=== PATIENT | male | born 1960 | race Caucasian/White ===

== ENCOUNTER 2018-06-21 11:12 | Emergency (ER) | payer OTHER ==
[~2018-06-21] VITALS: Ht 172.7 cm; Wt 73.5 kg
[~2018-06-21 11:12] MED LIST: ACETAMINOPHEN; IBUPROFEN
[2018-06-21] MEDS ORDERED: LISI5 PO ×2 (12:11)
[2018-06-21] MEDS ORDERED: VENL75ER PO ×2 (12:12)
[2018-06-21] MEDS ORDERED: METO100ER PO ×2 (12:12)
[2018-06-21] MEDS ORDERED: CHOL10002 ×2 (12:12)
[2018-06-21 12:14] LABS: BASOPHILS ABSOLUTE AUTO 0.04 K/mm3 (0.00-0.23); BASOPHILS PERCENT AUTO 1 % (0-2); EOSINOPHILS ABSOLUTE AUTO 0.05 K/mm3 (0.00-0.68); EOSINOPHILS PERCENT AUTO 1 % (0-6); Hematocrit 37.1 % (37.0-53.0); Hemoglobin 12.6 g/dL (13.5-17.5); IMMATURE GRAN ABSOLUTE AUTO 0.03 K/mm3 (0.00-0.10); IMMATURE GRAN PERCENT AUTO 0 % (0-1); LYMPHOCYTES ABSOLUTE AUTO 0.37 K/mm3 (0.84-5.20); LYMPHOCYTES PERCENT AUTO 5 % (21-46); MONOCYTES ABSOLUTE AUTO 0.56 K/mm3 (0.16-1.47); MONOCYTES PERCENT AUTO 8 % (4-13); Mean Corpuscular HGB 35.2 pg (26.0-34.0); Mean Corpuscular Volume 104 fL (80-100); Mean Platelet Volume 11.2 fL (9.1-12.4); NEUTROPHILS ABSOLUTE AUTO 5.87 K/mm3 (1.96-9.15); NEUTROPHILS PERCENT AUTO 85 % (41-73); Platelet Count 128 K/mm3 (150-400); RDW Coefficient Variation 13.1 % (11.7-14.2); RDW Standard Deviation 49.9 fL (35.1-46.3); Red Blood Cell Count 3.58 M/mm3 (4.30-5.90); White Blood Cell Count 6.92 K/mm3 (4.00-11.30)
[2018-06-21 12:29] LABS: Alanine Aminotransfer (ALT/SGP 98 U/L (12-78); Albumin, Blood 4.2 g/dL (3.4-5.0); Albumin/Globulin Ratio 1.2 (0.8-1.8); Alk Phos 81 U/L (50-136); Anion Gap 13 mmol/L (6-16); Aspartate Aminotrans (AST/SGOT 123 U/L (12-37); Bilirubin, Total 1.2 mg/dL (0.1-1.0); Blood Urea Nitrogen 18 mg/dL (8-24); Bun/Creatinine Ratio 15.5 (12.0-20.0); CO2, Blood 26 mmol/L (21-32); Calcium, Blood 9.5 mg/dL (8.5-10.1); Chloride, Blood 96 mmol/L (98-108); Creatinine, Blood 1.16 mg/dL (0.60-1.20); Globulin, Blood 3.4 g/dL (2.2-4.0); Glomerular Filtration Rate >60 (60-); Glucose, Blood 100 mg/dL (70-99); Potassium, Blood 3.7 mmol/L (3.5-5.5); Sodium, Blood 135 mmol/L (136-145); Total Protein, Blood 7.6 g/dL (6.4-8.2); Troponin I <0.015 ng/mL (0.000-0.040)
[2018-06-22] MEDS ORDERED: LEVE500 PO ×2 (12:28)
[2018-06-22] MEDS ORDERED: ACET325 PO ×2 (12:28)
== END 2018-06-21 13:55 | disposition home or self-care (01) ==
LOC: ER 11:12
PROVIDERS: Emergency Medicine
DX: R55 Syncope and collapse (principal); I10 Essential (primary) hypertension; Z88.8 Allergy status to other drugs, medicaments and biological substances; Z79.899 Other long term (current) drug therapy
CPT/HCPCS: 70450; 71046; 80053; 83880; 84484; 85025; 93005; 93010; 99285-25

== ENCOUNTER 2018-06-21 13:58 | Observation (INO) | payer OTHER ==
[~2018-06-21] VITALS: Ht 172.7 cm; Wt 73.0 kg
[~2018-06-21 13:58] MED LIST changes: +CHOL10002; +LISI5 PO; +METO100ER PO; +VENL75ER PO
[2018-06-21 18:27] LABS: U Amphetamine Screen Not Detected; U Barbituate Screen Not Detected; U Benzodiazapine Screen Not Detected; U Buprenorphine Screen Not Detected; U Cannabinoids Screen Not Detected; U Cocaine Screen Not Detected; U Methadone Screen Not Detected; U Methamphetamine Screen Not Detected; U Opiates Screen Not Detected; U Phencyclidine Screen Not Detected
[2018-06-21 18:28] LABS: U Oxycodone Screen Not Detected; U Propoxyphene Screen Not Detected
--- NOTE | 2018-06-21 19:35 | NUR ---
PHOTOS TAKEN AND WOUND DOCUMENTATION COMPLETED FOR PT'S ABRASION W/SWELLING TO THE R.TOP OF HIS HEAD. BANDAID INTACT. SCANT BLOOD NOTED.
--- NOTE | 2018-06-21 23:57 | NUR ---
THIAMINE INFUSION AND NS BOLUS BOTH HAVE BEEN COMPLETED THIS SHIFT AND PT WAS JUST SL. HE IS NPO AT THIS TIME SO WILL INQUIRE IF MD WANTS CONTINUOUS IVF.
[2018-06-22 04:33] LABS: BASOPHILS ABSOLUTE AUTO 0.04 K/mm3 (0.00-0.23); BASOPHILS PERCENT AUTO 1 % (0-2); EOSINOPHILS ABSOLUTE AUTO 0.18 K/mm3 (0.00-0.68); EOSINOPHILS PERCENT AUTO 3 % (0-6); Hematocrit 34.2 % (37.0-53.0); Hemoglobin 11.6 g/dL (13.5-17.5); IMMATURE GRAN ABSOLUTE AUTO 0.02 K/mm3 (0.00-0.10); IMMATURE GRAN PERCENT AUTO 0 % (0-1); LYMPHOCYTES ABSOLUTE AUTO 0.77 K/mm3 (0.84-5.20); LYMPHOCYTES PERCENT AUTO 13 % (21-46); MONOCYTES ABSOLUTE AUTO 0.69 K/mm3 (0.16-1.47); MONOCYTES PERCENT AUTO 11 % (4-13); Mean Corpuscular HGB 35.5 pg (26.0-34.0); Mean Corpuscular HGB Conc 33.9 g/dL (31.5-36.5); Mean Corpuscular Volume 105 fL (80-100); NEUTROPHILS ABSOLUTE AUTO 4.33 K/mm3 (1.96-9.15); NEUTROPHILS PERCENT AUTO 72 % (41-73); Platelet Count 113 K/mm3 (150-400); RDW Coefficient Variation 12.9 % (11.7-14.2); RDW Standard Deviation 49.7 fL (35.1-46.3); Red Blood Cell Count 3.27 M/mm3 (4.30-5.90); White Blood Cell Count 6.03 K/mm3 (4.00-11.30)
[2018-06-22 04:49] LABS: Anion Gap 9 mmol/L (6-16); Blood Urea Nitrogen 14 mg/dL (8-24); Bun/Creatinine Ratio 13.3 (12.0-20.0); CO2, Blood 25 mmol/L (21-32); Calcium, Blood 8.5 mg/dL (8.5-10.1); Chloride, Blood 102 mmol/L (98-108); Creatinine, Blood 1.05 mg/dL (0.60-1.20); Glomerular Filtration Rate >60 (60-); Glucose, Blood 82 mg/dL (70-99); Magnesium, Blood 2.5 mg/dL (1.6-2.4); Potassium, Blood 3.3 mmol/L (3.5-5.5); Sodium, Blood 136 mmol/L (136-145)
--- NOTE | 2018-06-22 05:20 | NUR ---
SUMMARY: A/OX3 AND COOPERATIVE W/CARE. BED ALARM ON FOR OCCASIONAL IMPULSIVITY AND PT DID SET IT OFF ONCE TO USE URINAL STANDING AT EOB. HE IS MILDLY FORGETFULL BUT HAS USED CALL LIGHT APPROPRIATELY THIS SHIFT. NO SEIZURE ACTIVITY OBSERVED AND PT HAS DENIED SYNCOPE AND ALL OTHER S/S DISTRESS. CIWAS ARE STABLE AT 1. NS BOLUS COMPLETED UPON NOCTE SHIFT CHANGE AND THIAMINE INFUSION WAS RECIEVED. PT WAS SL AND INSTRUCTED TO ADVANCE DIET TOLERATED. ASP PREC'S WERE MAINTAINED AND PT WAS GIVEN WATER AND YOGURT W/O S/S ASP OR DIFFICULTY. SOFT DIET WAS ORDERED BUT WILL ENSURE DAY STAFF ARE AWARE TO MONITOR THIS CLOSELY. PHOTO DOCUMENTATION COMPLETED OF PT'S ABRASION W/SWELLING (GOOSE EGG) TO TOP R.SIDE OF HEAD, BANDAID REMAINS C/D/I. NO ACUTE CHANGES, VSS/AFEBRILE. WILL MONITOR AND REPORT TO DAY RN.
[2018-06-22] MEDS ORDERED: ACET325 PO ×2 (12:28)
[2018-06-22] MEDS ORDERED: LEVE500 PO ×2 (12:28)
--- NOTE | 2018-06-22 13:19 | NUR ---
THIS RN GAVE REPORT TO JACKIE LAGUNAS AT 0950 TO ASSUME CARE OF PATIENTS. PATIENT RECIEVING AN EEG DURING THIS TIME. MEDICATIONS TO BE ADMINISTERED FOLLOWING EEG. THIS RN REASSUMED CARE OF PATIENTS AT 1300. PATIENT TO DISCHARGE. IV'S PULLED. DISCHARGE INFORMATION GIVEN. AT THIS TIME THIS RN WENT TO CHECK PATIENTS MEDICATION LOCK DRAWER. NOTED MORNING MEDICATIONS TO BE IN DRAWER. PATIENT HAD ALREADY DISCHARGED. NOTIFIED CLINICAL COORDINATOR DAMON HARRIS. SHE STATED TO CALL PATIENT TO INFORM PATIENT TO TAKE FIRST DOSE OF KEPPRA TONIGHT. PATIENT DID NOT ANSWER, LEFT VOICEMAIL STATING THAT PATIENT IS TO TAKE FIRST DOSE OF MEDICATION TONIGHT. AND IF HE HAD ANY QUESTIONS TO CALL THE MEDICAL FLOOR. CIWA NEGATIVE FOR WITHDRAWALS.
== END 2018-06-22 13:05 | disposition home or self-care (01) ==
LOC: ER 13:58 → MEDS 14:23 → ENPENDDIS 06-22 11:00 → MEDS 06-22 13:05
PROVIDERS: ADMIT Internal Medicine
DX: R56.9 Unspecified convulsions (principal); I10 Essential (primary) hypertension; F41.9 Anxiety disorder, unspecified; F10.10 Alcohol abuse, uncomplicated; E11.9 Type 2 diabetes mellitus without complications; Z98.890 Other specified postprocedural states; Z79.899 Other long term (current) drug therapy; Z79.01 Long term (current) use of anticoagulants; Z23 Encounter for immunization
CPT/HCPCS: 36415; 70553; 80048; 83605; 83735; 84146; 85025; 90686; 95819; 96374; 96376; 99285-25; A9577; G0008; G0378; G0480; J1953; J3411; J3475; J7040; J7042

== ENCOUNTER → 2019-01-03 | Outpatient (CLI) | payer OTHER ==
[~2019-01-03] MED LIST changes: +ACET325 PO; +LEVE500 PO
== END | disposition home or self-care (01) ==
LOC: LAB SHORT 11:37 → LAB EV 11:37
DX: L03.113 Cellulitis of right upper limb (principal)
CPT/HCPCS: 87070; 87077; 87147; 87186; 87205

== ENCOUNTER 2019-01-18 13:17 | Emergency (ER) | payer OTHER ==
[~2019-01-18] VITALS: Ht 175.3 cm; Wt 72.6 kg
[2019-01-18 13:44] LABS: BASOPHILS ABSOLUTE AUTO 0.01 K/mm3 (0.00-0.23); BASOPHILS PERCENT AUTO 0 % (0-2); EOSINOPHILS ABSOLUTE AUTO 0.01 K/mm3 (0.00-0.68); EOSINOPHILS PERCENT AUTO 0 % (0-6); Hematocrit 35.7 % (37.0-53.0); Hemoglobin 12.3 g/dL (13.5-17.5); IMMATURE GRAN ABSOLUTE AUTO 0.04 K/mm3 (0.00-0.10); IMMATURE GRAN PERCENT AUTO 1 % (0-1); LYMPHOCYTES ABSOLUTE AUTO 0.19 K/mm3 (0.84-5.20); LYMPHOCYTES PERCENT AUTO 4 % (21-46); MONOCYTES ABSOLUTE AUTO 0.72 K/mm3 (0.16-1.47); MONOCYTES PERCENT AUTO 14 % (4-13); Mean Corpuscular HGB 34.6 pg (26.0-34.0); Mean Corpuscular HGB Conc 34.5 g/dL (31.5-36.5); Mean Corpuscular Volume 100 fL (80-100); Mean Platelet Volume 10.3 fL (9.1-12.4); NEUTROPHILS ABSOLUTE AUTO 4.22 K/mm3 (1.96-9.15); NEUTROPHILS PERCENT AUTO 81 % (41-73); Platelet Count 148 K/mm3 (150-400); RDW Coefficient Variation 14.3 % (11.7-14.2); RDW Standard Deviation 52.9 fL (35.1-46.3); Red Blood Cell Count 3.56 M/mm3 (4.30-5.90); White Blood Cell Count 5.19 K/mm3 (4.00-11.30)
[2019-01-18 14:03] LABS: Alanine Aminotransfer (ALT/SGP 72 U/L (12-78); Albumin, Blood 3.6 g/dL (3.4-5.0); Alk Phos 113 U/L (50-136); Anion Gap 13 mmol/L (6-16); Aspartate Aminotrans (AST/SGOT 98 U/L (12-37); Bilirubin, Total 0.7 mg/dL (0.1-1.0); Blood Urea Nitrogen 9 mg/dL (8-24); Bun/Creatinine Ratio 8.9 (12.0-20.0); CO2, Blood 24 mmol/L (21-32); Calcium, Blood 8.9 mg/dL (8.5-10.1); Chloride, Blood 98 mmol/L (98-108); Creatinine, Blood 1.01 mg/dL (0.60-1.20); Globulin, Blood 3.6 g/dL (2.2-4.0); Glomerular Filtration Rate >60 (60-); Glucose, Blood 103 mg/dL (70-99); Sodium, Blood 135 mmol/L (136-145); Total Protein, Blood 7.2 g/dL (6.4-8.2)
== END 2019-01-18 14:55 | disposition home or self-care (01) ==
LOC: ER 13:17
PROVIDERS: Emergency Medicine
DX: G40.909 Epilepsy, unspecified, not intractable, without status epilepticus (principal); S01.01XA Laceration without foreign body of scalp, initial encounter; W18.30XA Fall on same level, unspecified, initial encounter; Z88.8 Allergy status to other drugs, medicaments and biological substances; Z79.899 Other long term (current) drug therapy; I10 Essential (primary) hypertension; F41.9 Anxiety disorder, unspecified; F17.220 Nicotine dependence, chewing tobacco, uncomplicated
CPT/HCPCS: 12002; 36415; 70450; 72125; 80053; 85025; 86850; 86900; 86901; 90471; 90714; 99284-25; G0480

== ENCOUNTER 2019-01-18 20:55 | Emergency (ER) | payer OTHER ==
[~2019-01-18] VITALS: Ht 175.3 cm; Wt 72.6 kg
[2019-01-18 22:15] LABS: Calcium, Ionized (POC) 1.13 mmol/L (1.10-1.46); Chloride (POC) 95 mmol/L (98-108); Creatinine (POC) 1.1 mg/dL (0.8-1.3); Glucose (ISTAT POC) 98 mg/dL (70-99); Hemoglobin (POC) 11.9 g/dL (13.5-17.5); Potassium (POC) 3.2 mmol/L (3.5-5.5); Sodium (POC) 131 mmol/L (135-148); Total CO2 (POC) 23 mmol/L (21-32)
== END 2019-01-18 23:12 | disposition home or self-care (01) ==
LOC: ER 20:55
PROVIDERS: Emergency Medicine
DX: G40.909 Epilepsy, unspecified, not intractable, without status epilepticus (principal); E87.6 Hypokalemia; Z88.8 Allergy status to other drugs, medicaments and biological substances; Z79.899 Other long term (current) drug therapy; I10 Essential (primary) hypertension; F41.9 Anxiety disorder, unspecified; F17.220 Nicotine dependence, chewing tobacco, uncomplicated
CPT/HCPCS: 80047; 80177; 85014; 96365; 99283-25; J1953; J7030

== ENCOUNTER 2022-06-30 18:26 | Emergency (ER) | payer OTHER ==
[~2022-06-30] VITALS: Ht 175.3 cm; Wt 74.8 kg
[2022-06-30] MEDS ORDERED: IBUP600 PO (23:02)
== END 2022-06-30 23:18 | disposition home or self-care (01) ==
LOC: ER 18:26
DX: S01.81XA Laceration without foreign body of other part of head, initial encounter (principal); S20.212A Contusion of left front wall of thorax, initial encounter; W01.198A Fall on same level from slipping, tripping and stumbling with subsequent striking against other object, initial encounter; I10 Essential (primary) hypertension; Z88.5 Allergy status to narcotic agent; Z79.899 Other long term (current) drug therapy
CPT/HCPCS: 70450; 71101; 90714